=== PATIENT | female | born 1940 | race Caucasian/White ===

== ENCOUNTER 2023-02-12 12:35 | Emergency (ER) | payer MEDICARE ==
[2023-02-12 12:56] VITALS: PULSE 65; TEMP 98
--- NOTE | 2023-02-12 13:08 | ERPHSYRPT ---
- History of Present Illness Time Seen by Provider: 02/12/23 13:04 Source: patient, family Exam Limitations: no limitations Patient Subjective Stated Complaint: Pt was at [employer] and missed the bottom step causing her to fall and land on her right hip which has been replaced 4-5 years ago Triage Nursing Assessment: Pt was brought to the ER by a friend, kylah, rates pain as 6/10, pt states that when she was trying to get up that something "Popped", she hopes something went back into place, no bruising noted, denies tenderness with palpatation, denies hitting head or other injury, doesn't appear to be in any distress Physician History: Patient was at [employer] and missed the bottom step causing her to fall and land on her right hip which has been replaced 4-5 years ago She was brought to the ER by a friend, kylah, rates pain as 6/10, pt states that when she was trying to get up that something "Popped", she hopes something went back into place, no bruising noted, denies tenderness with palpatation, denies hitting head or other injury, doesn't appear to be in any distress Method of Injury: fell Occurred: just prior to arrival Severity of Pain-Max: mild Severity of Pain-Current: mild Lower Extremities Pain: hip: right, leg: bilateral, knee: bilateral, thigh: bilateral, foot: bilateral, ankle: bilateral, heel: bilateral Modifying Factors: Improves With: cold therapy Associated Symptoms: none, popping sensation Body Map: 1 - pain Allergies/Adverse Reactions: ampicillin Allergy (Mild, Verified 02/12/23 12:57) Rash hydromorphone HCl [From Dilaudid] Allergy (Mild, Verified 02/12/23 12:57) Vomiting oxycodone [From OxyContin] Allergy (Verified 02/12/23 12:57) Home Medications: Ascorbic Acid 500 mg [Vitamin C 500 MG] 500 mg PO DAILY 04/30/15 [History] Aspirin/Calcium Carbonate/Mag [Aspirin Buffered 325 mg Tab] 325 mg PO DAILY 04/30/15 [History] Calcium Carbonate/Vitamin D3 [Calcium 600 + Vit D Tablet] 1 tab PO DAILY 04/30/15 [History] Diltiazem HCl 240 mg [Cardizem CD 240 MG] 240 mg PO DAILY 04/30/15 [History] Ferrous Sulfate [Slow Release Iron] 1 tab PO DAILY 04/30/15 [History] Levothyroxine Sodium 100 Mcg [Synthroid 100 Mcg] 100 mcg PO UD 04/30/15 [History] Multivitamin [Multivitamins] 1 cap PO DAILY 04/30/15 [History] Pyridoxine HCl 100 mg [Vitamin B-6 (Pyridoxine) 100 MG] 100 mg PO DAILY 04/30/15 [History] Vitamin E 200 unit PO DAILY 04/30/15 [History] atenoloL [Tenormin] 100 mg PO DAILY 04/30/15 [History] Gabapentin [Neurontin ] 300 mg PO TID 02/12/23 [History] Lisinopril 20 mg [Zestril 20 MG] 20 mg PO DAILY 02/12/23 [History] Pantoprazole 20 mg [Protonix 20MG Tablet] 20 mg PO DAILY 02/12/23 [History] Tramadol HCl 50 mg [Ultram 50 mg] 50 mg PO BID 02/12/23 [History] Hx Tetanus, Diphtheria Vaccination/Date Given: Yes Hx Influenza Vaccination/Date Given: Yes Hx Pneumococcal Vaccination/Date Given: Yes Travel Risk - International Travel Have you traveled outside of the country in past 3 weeks: No - Coronavirus Screening Are you exhibiting any of the following symptoms?: No Close contact with a COVID-19 positive Pt in past 14-21 Days: No - Vaccine Status Have you recieved a Covid-19 vaccination: Yes 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: [employer] - Vaccination Dates Date of 2cond Vaccination (if applicable): 2020 - Review of Systems Constitutional: No Symptoms Eyes: No Symptoms Ears, Nose, & Throat: No Symptoms Respiratory: No Symptoms Cardiac: No Symptoms Abdominal/Gastrointestinal: No Symptoms Genitourinary Symptoms: No Symptoms Musculoskeletal: Joint Pain (right hip) Skin: No Symptoms Neurological: No Symptoms Psychological: No Symptoms Endocrine: No Symptoms Hematologic/Lymphatic: No Symptoms Immunological/Allergic: No Symptoms - Past Medical History Pertinent Past Medical History: Yes Neurological History: No Pertinent History, Migraines ENT History: No Pertinent History Cardiac History: High Cholesterol, Hypertension, Other Respiratory History: No Pertinent History Endocrine Medical History: No Pertinent History Musculoskeletal History: Arthritis, Osteoarthritis, Rheumatoid Arthritis GI Medical History: No Pertinent History History: No Pertinent History Psycho-Social History: No Pertinent History Female Reproductive Disorders: No Pertinent History Other Medical History: LEAKY VALVE - Past Surgical History Past Surgical History: Yes Neuro Surgical History: No Pertinent History Cardiac: No Pertinent History Respiratory: No Pertinent History Gastrointestinal: Appendectomy Genitourinary: No Pertinent History Musculoskeletal: Orthopedic Surgery Female Surgical History: Hysterectomy Other Surgical History: RIGHT HIP. BREAST CANCER - Social History Smoking Status: Never smoker Exposure to second hand smoke: No Drug Use: none Patient Lives Alone: Yes - Nursing Vital Signs Nursing Vital Signs: Initial Vital Signs Temperature 98.0 F 02/12/23 12:50 Pulse Rate 65 02/12/23 12:50 Blood Pressure 178/67 02/12/23 12:50 O2 Sat by Pulse Oximetry 96 02/12/23 12:50 Pain Scale Pain Intensity 6 - Physical Exam General Appearance: no apparent distress Eyes, Ears, Nose, Throat Exam: normal ENT inspection Neck Exam: normal inspection Cardiovascular/Respiratory Exam: chest non-tender Gastrointestinal/Abdominal Exam: non-tender Back Exam: normal inspection Hips Exam: right: pain, soft tissue tenderness, bilateral: normal inspection, normal range of motion, no evidence of injury, bone tenderness, deformity, ecchymosis, limited range of motion, nodules, swelling, other Legs Exam: bilateral leg: non-tender Knees Exam: bilateral knee: non-tender Ankle Exam: bilateral ankle: non-tender Foot Exam: bilateral foot: non-tender Neuro/Tendon Exam: normal sensation, normal motor functions, normal tendon functions, responds to pain, no evidence tendon injury Mental Status Exam: alert, oriented x 3, cooperative Skin Exam: normal color SpO2 Interpretation: normal SpO2: 96 O2 Delivery: Room Air - Course Nursing assessment & vital signs reviewed: Yes - Radiology Exams Hip X-ray Interpretation: Reviewed by me Ordered Tests: Active Orders 24 hr Category Date Time Status HIP UNI (2V) INCL PEL IF DONE Stat Exams 02/12/23 13:01 Completed Lab/Rad Data: [id number] RAD/HIP UNI (2V) INCL PEL IF DONE CLINICAL HISTORY:right hip injury COMPARISON:None. TECHNIQUE:X-ray right hip-AP 2 views. FINDINGS: Greater trochanter medial aspect radio-lucent incomplete fracture line. Soft tissue haze and swelling overlying the right greater trochanter possibly trauma related. Cortical irregularities of the covered part of the left pubic bone which is seen slightly elevated in relation to the right side. Reduced bone density. Status post right hip replacement. Medial intra-pelvic migration (about 8.5 mm) of the acetabular cup fixing screw. No radiological evidence of osteomyelitis. No looseness was seen. A small well-corticated bony structure adjacent to the superior aspect of the right greater trochanter is likely of chronic onset. IMPRESSION: 1. Greater trochanter medial aspect radio-lucent incomplete fracture line of indeterminate onset. Clinical correlation is advised. 2. Soft tissue haze and swelling overlying the right greater trochanter possibly trauma related. 3. Reduced bone density. 4. Cortical irregularities of the covered part of the left pubic bone which is seen slightly elevated in relation to the right side. Clinical correlation and if needed dedicated radiograph evaluation is advised. 5. Medial intra-pelvic migration (about 8.5 mm) of the acetabular cup fixing screw. Clinical correlation is advised. - Progress Progress: improved, pain not gone completely Counseled pt/family regarding: diagnosis, rad results - Departure Departure Disposition: Home Clinical Impression: Right hip pain, Fall (on) (from) other stairs and steps, initial encounter Condition: Stable Critical Care Time: No Referrals: Jessee ARRINGTON [Primary Care Provider] - Follow Up with PCP/3 days Instructions: Contusion (DC) Additional Instructions: Discharge/Care Plan PURA SAAVEDRA was seen on 02/12/23 in the Emergency Room. The patient was counseled regarding Diagnosis,Lab results, Imaging studies, need for follow up and when to return to the Emergency Room. Prescriptions given: Discharge Note I have spoken with the patient and/or caregivers. I have explained the patient's condition, diagnosis and treatment plan based on the information available to me at this time. I have answered the patient's and/or caregiver's questions and addressed any concerns. The patient and/or caregivers have as good understanding of the patient's diagnosis, condition and treatment plan as can be expected at this point. The vital signs have been stable. The patient's condition is stable and appropriate for discharge from the emergency department. The patient will pursue further outpatient evaluation with the primary care physician or other designated or consulting physician as outlined in the discharge instructions. The patient and/or caregivers are agreeable to this plan of care and follow-up instructions have been explained in detail. The patient and/or caregivers have received these instruction. The patient/and or caregivers are aware that any significant change in condition or worsening of symptoms should prompt an immediate return to this or the closest emergency department or call 911. PURA SAAVEDRA was seen on 02/12/23 n the Emergency Room. At that time you were treated for an emergent condition, during your visit Laboratory, Radiology and/or other procedures may have been ordered. It is very important that you follow-up with your Primary Care Physician Jessee ARRINGTON within the next 24-48 hours to review your Emergency Room visit and the final results of testing that was ordered. Some test results such as Urine Cultures, Blood Cultures, and other cultures if ordered will not be finalized for 24-48 hours. If you do not have a Primary Care Provider please call the medical records department at [phone] ext [phone] to obtain a copy of your results or you may sign into our patient portal to obtain these results by visiting us @ [email or web address] and completing the following steps: 1. Click on the Patient Portal link 2. Click the Patient Self Enrollment Link to complete the enrollment form and entering your 3. Once the enrollment form is completed you will receive an email with a temporary ID and password at the email address you provided. 4. Next choose a user name and password. Your user name must be at least 4 characters long and your password must be at least 4 characters long. 5. Choose a security question from the list and provide your answer to the question. If you already have signed into the Health Portal you may access your Health Care Information 13/09 by the following steps: 1. Login to our website @ [email or web address] 2. Enter your original user name and password. FAQS The [facility] Health Portal is an online tool that contains your Lab Results, Radiology Reports, Visit History, Discharge Instructions and Health Summary Lab and Radiology Results will not be available for 72 hours on the portal. The Portal is a secure site, passwords are encryted and URLs are re-written so they cannot be copied and pasted. You and authorized family members are the only ones who can access your Portal. Also there is a timeout feature that protects your information if you leave the Portal page open. If you have technical difficulty please use the Contact Us link on the page this will allow you to submit any questions you have regarding the Portal or you may contact the Medical Record Department at [phone] ext [phone].
[2023-02-12 14:06] VITALS: BP 140/70
--- NOTE | 2023-02-12 14:44 | XRAY ---
CLINICAL HISTORY:right hip injury COMPARISON:None. TECHNIQUE:X-ray right hip-AP 2 views. FINDINGS: Greater trochanter medial aspect radio-lucent incomplete fracture line. Soft tissue haze and swelling overlying the right greater trochanter possibly trauma related. Cortical irregularities of the covered part of the left pubic bone which is seen slightly elevated in relation to the right side. Reduced bone density. Status post right hip replacement. Medial intra-pelvic migration (about 8.5 mm) of the acetabular cup fixing screw. No radiological evidence of osteomyelitis. No looseness was seen. A small well-corticated bony structure adjacent to the superior aspect of the right greater trochanter is likely of chronic onset. IMPRESSION: 1. Greater trochanter medial aspect radio-lucent incomplete fracture line of indeterminate onset. Clinical correlation is advised. 2. Soft tissue haze and swelling overlying the right greater trochanter possibly trauma related. 3. Reduced bone density. 4. Cortical irregularities of the covered part of the left pubic bone which is seen slightly elevated in relation to the right side. Clinical correlation and if needed dedicated radiograph evaluation is advised. 5. Medial intra-pelvic migration (about 8.5 mm) of the acetabular cup fixing screw. Clinical correlation is advised. DISCLAIMER:A subtle bone abnormality or fracture may not be readily apparent on x-rays, thus clinical correlation and further imaging including follow up CT, MRI, or follow up x-rays are advised as needed. Electronically Signed by: Thierry Talamantes MD. (02/12/2023 14:40:02 EST)
[2023-02-12 14:55] VITALS: O2SAT 96
== END 2023-02-12 15:05 | disposition home or self-care (01) ==
LOC: ED 12:35
DX: M25.551 Pain in right hip (principal); W10.9XXA Fall (on) (from) unspecified stairs and steps, initial encounter; Y92.22 Religious institution as the place of occurrence of the external cause; E78.5 Hyperlipidemia, unspecified; I10 Essential (primary) hypertension; Z79.891 Long term (current) use of opiate analgesic; Z79.899 Other long term (current) drug therapy; Z96.641 Presence of right artificial hip joint
CPT/HCPCS: 73502; 99282

== ENCOUNTER 2024-09-07 18:31 | Emergency (ER) | payer MEDICARE ==
[2024-09-07 18:56] VITALS: O2SAT 86
[2024-09-07 18:57] LABS: BASOPHIL % 0.4 % (0.1-1.2); Basophil (Absolute #) 0.04 x10^3/uL (0.01-0.08); Eosinophil (Absolute #) 0.11 x10^3/uL (0.04-0.36); Hematocrit 30.1 % (34.1-44.9); Hemoglobin 9.7 g/dL (11.2-15.7); IMMATURE GRAN # 0.19 x10^3u/L (0.001-0.031); IMMATURE GRAN % 1.8 % (0.001-0.429); Lymphocyte (Absolute #) 2.84 x10^3/uL (1.18-3.74); Mean Corpuscular Hemoglobin 34.4 pg (25.6-32.2); Mean Corpuscular Hgb Concent. 32.2 g/dL (32.2-35.5); Monocyte (Absolute #) 0.36 x10^3/uL (0.24-0.86); NUCLEATED RBC # 0.00 x10^3u/L (0.00-0.012); NUCLEATED RBC % 0.0 % (0.00-0.2); Platelet Count 169 x10^3/uL (182-369); Red Blood Count 2.82 x10^6/uL (3.93-5.22); White Blood Count 10.6 x10^3/uL (3.98-10.04)
[2024-09-07 18:57] LABS: VBG BASE EXCESS -1.1 (-2.0-2.0); VBG CARBOXYHEMOGLOBIN 4.3 % T HGB (0.0-6.9); VBG FIO2 32.0 %; VBG HCO3- 24.8 meq/L (22-28); VBG HEMOGLOBIN 10.2; VBG O2 SATURATION 71.9 (95-100); VBG PCO2 46.0 mm/Hg (42-55); VBG PO2 41.0 mm/Hg (25-40); VBG POTASSIUM 4.9 (3.5-5.1)
[2024-09-07 18:58] VITALS: BP 88/54; PULSE 119; RESP 22
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
[2024-09-07 19:04] LABS: Calcium 9.8 mg/dL (8.4-10.2); Carbon Dioxide 25.0 mmol/L (22-30); Creatinine 1 1.16 mg/dL (0.52-1.04); EST GLOMERULAR FILTRATION RATE 46.8 ML/MIN; Glucose 156.0 mg/dL (74-106); Potassium 4.5 mmol/L (3.5-5.1); SGOT/AST 166.0 U/L (14-36); SGPT/ALT 63.0 U/L (0-35); Total Protein 7.3 g/dL (6.3-8.2)
[2024-09-07] MEDS ORDERED: SUBLIMAZE 100 MCG/2 ML ONE (19:09)
[2024-09-07] MEDS ORDERED: TRANEXAMIC ACID 1000 MG/10 ML ONE ×2 (19:24→19:25)
[2024-09-07] MEDS: SUBLIMAZE 100 MCG/2 ML IV ONE (19:35)
[2024-09-07 19:42] LABS: ABO TYPING A; RH TYPING POSITIVE
[2024-09-07 19:44] LABS: CROSS MATCH (PRBC) COMPATIBLE (COMPATIBLE)
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
--- NOTE | 2024-09-07 22:13 | XRAY ---
Indication: Chest tube placement. Comparison: Taken earlier in the day. Limited left lateral decubitus portable chest demonstrates new right chest tube with tip projecting mid hemithorax. Right pneumothorax not seen presumed improved. Remaining cardiopulmonary structures poorly visualized due to suboptimal positioning.
== END 2024-09-07 19:50 | disposition short-term general hospital (02) ==
LOC: ED 18:31
DX: S32.391A Other fracture of right ilium, initial encounter for closed fracture (principal); S22.41XA Multiple fractures of ribs, right side, initial encounter for closed fracture; S27.2XXA Traumatic hemopneumothorax, initial encounter; V49.40XA Driver injured in collision with unspecified motor vehicles in traffic accident, initial encounter; I10 Essential (primary) hypertension; Z79.899 Other long term (current) drug therapy
CPT/HCPCS: 32551; 36415; 36430; 70450; 71045; 71250; 72125; 72170; 74176; 80053; 82805; 83605; 85025; 86850; 86900; 86901; 86922; 93041; 94760; 96374; 99291; P9016